=== PATIENT | male | born 2000 | race Caucasian/White ===

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

== ENCOUNTER 2019-01-12 17:30 | Emergency (ER) | payer OTHER ==
[~2019-01-12] VITALS: Ht 165.1 cm; Wt 54.4 kg
[2019-01-12 18:10] LABS: BASOPHILS 0.4 % (0.0-2.0); EOSINOPHILS 0.4 % (0.0-3.0); HEMATOCRIT 44.2 % (42.0-52.0); HEMOGLOBIN 15.1 gm/dL (14.0-18.0); LYMPHOCYTES 27.1 % (24.0-44.0); MCH 29.5 pg (26.0-34.0); MCV 86.5 fL (80.0-100.0); MONOCYTES 8.4 % (1.0-8.0); PLATELET COUNT 221 thou/uL (150-400); POLYS 63.7 % (36.0-66.0); RBC 5.11 mil/uL (4.50-6.00); RDW 13.5 % (10.5-14.5); WBC 9.4 thou/uL (4.0-11.0)
[2019-01-12 18:14] LABS: CREATININE 0.9 mg/dL (0.7-1.3)
[2019-01-12 18:21] LABS: TOTAL BILIRUBIN 0.3 mg/dL (<0.1-1.0)
[2019-01-12 18:27] LABS: APTT 26.4 Seconds (24.5-32.8); D-DIMER 0.44 ug/mLFEU (0.19-0.50); PROTIME 10.6 Seconds (9.3-11.4)
[2019-01-12 19:57] LABS: URINE BILIRUBIN NEGATIVE (Negative); URINE BLOOD NEGATIVE (Negative); URINE CLARITY CLEAR; URINE COLOR YELLOW; URINE GLUCOSE-RANDOM* NEGATIVE (Negative); URINE KETONES NEGATIVE (Negative); URINE LEUKOCYTES-REFLEX NEGATIVE (Negative); URINE NITRITE-REFLEX NEGATIVE (Negative); URINE PROTEIN (DIPSTICK) NEGATIVE (Negative); URINE SPECIFIC GRAVITY <= 1.005 (1.005-1.035); URINE UROBILINOGEN 0.2 E.U./dl (0.2-1.0)
[2019-01-12 20:12] VITALS: BP 135/75
--- NOTE | 2019-01-14 17:10 | EKG ---
[place] [address] [address] [place] [address] ELECTROCARDIOGRAM REPORT Name: JESSICA BUENO Room #: DEP NAY Keyes#: [id number] Admission: 01/12/19 Attend Phys: Discharge: 01/12/19 Date of : 89 Report #: [id number] THIS REPORT FOR: //name// [facility] ED Test Date: 2019-01-12 Test Time: 17:29:34 Pat Name: JESSICA BUENO Department: Room: Gender: Beverage Specialist: cw : 2000 Requested By: Deirdre Salazar Order Number: [id number] MD: Deny Jacob Measurements Intervals [place] Rate: 80 P: 59 NC: 135 QRS: 112 QRSD: 96 T: 20 QT: 339 QTc: 391 Interpretive Statements Sinus rhythm Right ventricular conduction delay No previous ECG available for comparison Electronically Signed On 01-14-2019 17:10:35 CDT by Deny Jacob [email or web address] <ELECTRONICALLY SIGNED> By: Deny Jacob MD, [facility] 01/14/19 1710 1729 1729 Deny Jacob MD, FACC /EPI
== END 2019-01-12 20:10 ==
LOC: ER 17:30
PROVIDERS: Physician Assistant
DX: R07.9 Chest pain, unspecified (principal); F41.9 Anxiety disorder, unspecified; R11.2 Nausea with vomiting, unspecified; F84.0 Autistic disorder; F31.9 Bipolar disorder, unspecified; Z88.0 Allergy status to penicillin